=== PATIENT | female | born 1990 | race Caucasian/White ===

== ENCOUNTER 2020-02-09 20:26 | Inpatient (IN) | payer OTHER ==
[~2020-02-09] VITALS: Ht 157.5 cm; Wt 79.4 kg
[2020-02-09] MEDS ORDERED: PROMETRIUM200 MG (20:39)
[2020-02-09] MEDS ORDERED: DICLEGIS DR 101 EACH (20:39)
[2020-02-11] MEDS ORDERED: ACETAMINOPHEN500 M1 PO (09:03)
[2020-02-11] MEDS ORDERED: DRAMAMINE LESS25 MG PO (09:04)
[2020-02-11] MEDS ORDERED: KEFLEX500 MG PO (09:05)
[2020-02-11] MEDS ORDERED: CLARITIN10 MG PO (09:07)
[2020-02-11] MEDS ORDERED: MECLIZINE HCL25 MG PO (09:11)
[2020-02-11] MEDS ORDERED: ONDANSETRON HCL4 MG PO (09:29)
== END 2020-02-11 12:32 | disposition home or self-care (01) | DRG 832 ==
LOC: ER 20:26 → OB/GYN 02-10 12:40
PROVIDERS: ADMIT Obstetrics & Gynecology; ATTEND Obstetrics & Gynecology
DX: O21.0 Mild hyperemesis gravidarum (principal); N39.0 Urinary tract infection, site not specified; H81.12 Benign paroxysmal vertigo, left ear; Z3A.11 11 weeks gestation of pregnancy

== ENCOUNTER 2020-02-11 16:23 | Outpatient (CLI) | payer OTHER ==
[~2020-02-11 16:23] MED LIST: ACETAMINOPHEN500 M1 PO; CLARITIN10 MG PO; DICLEGIS DR 101 EACH; DRAMAMINE LESS25 MG PO; KEFLEX500 MG PO; MECLIZINE HCL25 MG PO; ONDANSETRON HCL4 MG PO; PROMETRIUM200 MG
== END 2020-02-11 16:26 | disposition home or self-care (01) ==
LOC: OFIC 805 16:23
DX: H81.13 Benign paroxysmal vertigo, bilateral (principal)

== ENCOUNTER 2020-02-24 10:29 | Outpatient (CLI) | payer OTHER ==
[~2020-02-24] VITALS: Ht 152.4 cm; Wt 79.4 kg
== END 2020-02-24 15:49 | disposition home or self-care (01) ==
LOC: OFIC 805 10:29
PROVIDERS: ATTEND Otolaryngology
DX: H91.22 Sudden idiopathic hearing loss, left ear (principal); R42 Dizziness and giddiness

== ENCOUNTER → 2020-04-15 | Outpatient (CLI) | payer OTHER | END | disposition home or self-care (01) | LOC: PRENATAL 13:00 | PROVIDERS: ATTEND Obstetrics & Gynecology Maternal & Fetal Medicine | DX: O35.0XX1 Maternal care for (suspected) central nervous system malformation in fetus, fetus 1 (principal); O99.212 Obesity complicating pregnancy, second trimester; O98.512 Other viral diseases complicating pregnancy, second trimester; O35.3XX1 Maternal care for (suspected) damage to fetus from viral disease in mother, fetus 1; Z36.89 Encounter for other specified antenatal screening; Z3A.21 21 weeks gestation of pregnancy ==

== ENCOUNTER 2020-04-23 14:12 | Outpatient (CLI) | payer OTHER ==
[~2020-04-23] VITALS: Ht 157.5 cm; Wt 88.5 kg
== END 2020-04-23 16:51 | disposition home or self-care (01) ==
LOC: OFIC 805 14:12
PROVIDERS: ATTEND Otolaryngology
DX: H91.22 Sudden idiopathic hearing loss, left ear (principal)

== ENCOUNTER → 2020-06-10 | Outpatient (CLI) | payer OTHER | END | disposition home or self-care (01) | LOC: OFIC 805 08:51 | PROVIDERS: ATTEND Otolaryngology | DX: G44.89 Other headache syndrome (principal); H91.22 Sudden idiopathic hearing loss, left ear; R42 Dizziness and giddiness ==

== ENCOUNTER 2020-08-12 13:00 | Inpatient (IN) | payer OTHER ==
[~2020-08-12] VITALS: Ht 157.5 cm; Wt 101.2 kg
[2020-08-24] MEDS ORDERED: METFORMIN HCL500 MG PO (12:32)
[2020-08-24] MEDS ORDERED: ZOFRAN8 MG PO (12:33)
[2020-08-24] MEDS ORDERED: PRENATAL TABLE1 EAC1 PO (12:36)
[2020-08-24] MEDS ORDERED: DRAMAMINE LESS25 MG PO (12:36)
[2020-08-24] MEDS ORDERED: PRILOSEC10 MG PO (12:37)
[2020-08-28] MEDS ORDERED: IBU800 MG PO (02:50)
[2020-08-28] MEDS ORDERED: COLACE100 MG PO (02:50)
[2020-08-28] MEDS ORDERED: SIMETHICONE125 M1 PO (02:51)
== END 2020-08-28 13:48 | disposition home or self-care (01) | DRG 788 ==
LOC: LDR 08-24 06:09 → OB/GYN 08-24 13:00
PROVIDERS: ADMIT Obstetrics & Gynecology; ATTEND Obstetrics & Gynecology
PROC: 3E0P7VZ Introduction of Hormone into Female Reproductive, Via Natural or Artificial Opening (ICD-10-PCS; 2020-08-24)
PROC: 3E033VJ Introduction of Other Hormone into Peripheral Vein, Percutaneous Approach (ICD-10-PCS; 2020-08-24)
PROC: 4A1HXFZ Monitoring of Products of Conception, Cardiac Rhythm, External Approach (ICD-10-PCS; 2020-08-24)
PROC: 10D00Z1 Extraction of Products of Conception, Low, Open Approach (ICD-10-PCS; principal; 2020-08-25 16:00)
DX: O61.0 Failed medical induction of labor (principal); O24.425 Gestational diabetes mellitus in childbirth, controlled by oral hypoglycemic drugs; O13.4 Gestational [pregnancy-induced] hypertension without significant proteinuria, complicating childbirth; Z3A.39 39 weeks gestation of pregnancy; Z37.0 Single live birth; Z20.828 Contact with and (suspected) exposure to other viral communicable diseases

== ENCOUNTER 2021-12-23 09:10 | Outpatient (CLI) | payer OTHER ==
[~2021-12-23 09:10] MED LIST changes: +COLACE100 MG PO; +IBU800 MG PO; +METFORMIN HCL500 MG PO; +PRENATAL TABLE1 EAC1 PO; +PRILOSEC10 MG PO; +SIMETHICONE125 M1 PO; +ZOFRAN8 MG PO
== END 2021-12-23 10:05 | disposition home or self-care (01) ==
LOC: PRENATAL 09:10
PROVIDERS: ATTEND Obstetrics & Gynecology Maternal & Fetal Medicine
DX: O35.0XX0 Maternal care for (suspected) central nervous system malformation in fetus, not applicable or unspecified (principal); O99.210 Obesity complicating pregnancy, unspecified trimester; O34.219 Maternal care for unspecified type scar from previous cesarean delivery; Z3A.21 21 weeks gestation of pregnancy

== ENCOUNTER → 2022-02-26 | Outpatient (CLI) | payer OTHER | END | disposition home or self-care (01) | LOC: OFIC 805 03-10 15:30 → OBS/DEL 17:57 | PROVIDERS: ATTEND Obstetrics & Gynecology | DX: O26.893 Other specified pregnancy related conditions, third trimester (principal); Z3A.30 30 weeks gestation of pregnancy; W18.30XA Fall on same level, unspecified, initial encounter; Y93.E9 Activity, other interior property and clothing maintenance; Y92.019 Unspecified place in single-family (private) house as the place of occurrence of the external cause; Y99.9 Unspecified external cause status ==

== ENCOUNTER 2022-04-15 16:10 | Inpatient (IN) | payer OTHER ==
[~2022-04-15] VITALS: Ht 157.5 cm; Wt 95.3 kg
== END 2022-04-18 12:37 | disposition home or self-care (01) | DRG 783 ==
LOC: OB/GYN 16:10 → LDR 16:10 → OB/GYN 22:13
PROVIDERS: ADMIT Obstetrics & Gynecology; ATTEND Obstetrics & Gynecology
PROC: 0UB70ZZ Excision of Bilateral Fallopian Tubes, Open Approach (ICD-10-PCS; 2022-04-15)
PROC: 4A1HXCZ Monitoring of Products of Conception, Cardiac Rate, External Approach (ICD-10-PCS; 2022-04-15)
PROC: 10D00Z1 Extraction of Products of Conception, Low, Open Approach (ICD-10-PCS; principal; 2022-04-15 17:00)
DX: O34.211 Maternal care for low transverse scar from previous cesarean delivery (principal); O14.13 Severe pre-eclampsia, third trimester; Z3A.37 37 weeks gestation of pregnancy; Z37.0 Single live birth; Z30.2 Encounter for sterilization; Z20.822 Contact with and (suspected) exposure to COVID-19